=== PATIENT | female | born 1985 | race American Indian/Alaskan Native ===

== ENCOUNTER 2016-11-29 16:36 | Observation (INO) | payer MEDICAID ==
[2016-11-29 16:46] VITALS: BP 100/60; PULSE 96; RESP 17; TEMP 98.4; O2SAT 99
[2016-11-29] MEDS ORDERED: Sodium Chloride 0.9% 1,000 ML IV STA (17:08)
--- NOTE | 2016-11-29 17:21 | ED PDOC ---
HPI: Female Pain Time Seen by Provider: 11/29/16 16:45 Chief Complaint (Nursing): Abdominal Pain Chief Complaint (Provider): Pelvic pain History Per: Patient History/Exam Limitations: no limitations Onset/Duration Of Symptoms: Days (3) Current Symptoms Are (Timing): Still Present Additional Complaint(s): Left lower pelvic pain like cramps. Ongoing for 3 days. Also nonbloody nausea/ vomit. No diarrhea. No vaginal bleeding or dysuria. No chest pain, dyspnea. No back pain. No weakness. Unsure if preg Past Medical History Reviewed: Nursing Documentation, Vital Signs Vital Signs: Last Vital Signs Temp 98.4 F 11/29/16 16:42 Pulse 96 H 11/29/16 16:42 Resp 17 11/29/16 16:42 BP 100/60 11/29/16 16:42 Pulse Ox 99 11/29/16 16:42 - Medical History PMH: Hiatal Hernia - Surgical History Other surgeries: hernia repair - Family History Family History: States: Unknown Family Hx - Living Arrangements Living Arrangements: With Family - Social History Current smoker - smoking cessation education provided: No Alcohol: None Drugs: Denies - Immunization History Hx Tetanus Toxoid Vaccination: No Hx Influenza Vaccination: No Hx Pneumococcal Vaccination: No - Home Medications Home Medications: Ambulatory Orders Medication Instructions Recorded Docusate [Colace] 100 mg PO BID PRN #20 cap 01/16/16 Magnesium Citrate [[facility] [place] 300 ml PO ONCE #1 bottle 01/16/16 Pharmacy Magnesium Citrate] Ciprofloxacin HCl [Cipro] 500 mg PO BID #14 tablet 06/25/16 Metronidazole [Flagyl] 500 mg PO BID #14 tablet 06/25/16 - Allergies Allergies/Adverse Reactions: Allergies Allergy/AdvReac Type Severity Reaction Status Date / Time No Known Allergies Allergy Verified 11/29/16 16:42 Review of Systems ROS Statement: Except As Marked, All Systems Reviewed And Found Negative Gastrointestinal: Positive for: Nausea, Vomiting Genitourinary Female: Positive for: Pelvic Pain Physical Exam - Reviewed Nursing Documentation Reviewed: Yes Vital Signs Reviewed: Yes - Physical Exam Appears: Positive for: Non-toxic, No Acute Distress Head Exam: Positive for: ATRAUMATIC, NORMAL INSPECTION, NORMOCEPHALIC Skin: Positive for: Normal Color, Warm, DRY Eye Exam: Positive for: EOMI, Normal appearance, PERRL ENT: Positive for: Normal ENT Inspection Neck: Positive for: Normal, Painless ROM Cardiovascular/Chest: Positive for: Regular Rate, Rhythm Respiratory: Positive for: CNT, Normal Breath Sounds Gastrointestinal/Abdominal: Positive for: Bowel Sounds, Soft, Tenderness (L lower pelvic mild) Back: Positive for: Normal Inspection. Negative for: L CVA Tenderness, R CVA Tenderness Extremity: Positive for: Normal ROM. Negative for: Tenderness, Pedal Edema Neurologic/Psych: Positive for: Alert, Oriented - Laboratory Results Result Diagrams: 11/29/16 17:15 11/29/16 17:15 Interpretation Of Abn Labs: o pos; elevate bhcg Urine POC: Positive - ECG O2 Sat by Pulse Oximetry: 99 Pulse Ox Interpretation: Normal Medical Decision Making Medical Decision Making: Stable. ED OBSERVATION Discharge: Yes Date of observation admission: 11/29/16 Time of observation admission: 17:21 - Observation admission statement Patient is being placed in observation because:: abd pain - Goals of Observation Goals of observation are:: abd pain - Progress Note Progress Note: 11/29/16 19:34 SLIUP. Pain free. Tolerated po. FU with obgyn. Disposition - Clinical Impression Clinical Impression: , threatened, early - Patient ED Disposition Is Patient to be Admitted: No Counseled Patient/Family Regarding: Studies Performed, Diagnosis, Need For Followup - Disposition Disposition: Routine/Home Disposition Time: 19:00 Condition: STABLE - POA Present On Arrival: None
[2016-11-29 17:50] LABS: BASO % 0.3 % (0.0-2.0); EOS # 0.1 K/uL (0.0-0.7); EOS % 0.9 % (0.0-4.0); HEMOGLOBIN 11.9 g/dL (12.0-16.0); LYMPH # 1.8 K/uL (1.0-4.3); LYMPH % 16.9 % (20.0-40.0); MEAN CELL VOLUME 86.5 fl (81.0-99.0); MEAN CORPUSCULAR HEMOGLOBIN 27.9 pg (27.0-31.0); MEAN CORPUSCULAR HGB CONC 32.3 g/dL (33.0-37.0); MEAN PLATELET VOLUME 7.2 fl (7.2-11.7); MONO # 0.7 K/uL (0.0-0.8); MONO % 6.7 % (0.0-10.0); NEUT # 7.9 K/uL (1.8-7.0); NEUT % 75.2 % (50.0-75.0); RBC 4.24 Mil/uL (3.80-5.20); RED CELL DISTRIBUTION WIDTH 14.1 % (11.5-14.5); WHITE BLOOD COUNT 10.5 K/uL (4.8-10.8)
[2016-11-29 18:01] LABS: ALB/GLOB RATIO 1.5 (1.0-2.1); ALBUMIN 4.3 g/dL (3.5-5.0); ALT/SGPT 27 U/L (9-52); AST/SGOT 21 U/L (14-36); BLOOD UREA NITROGEN 7 mg/dl (7-17); GFR AFRICAN-AMERICAN > 60; GFR NON-AFRICAN AMERICAN > 60
--- NOTE | 2016-11-29 19:57 | US ---
: EXAM: US First Trimester, Transabdominal CLINICAL HISTORY: 31 years old, female; Pain; complicated by abdominal or pelvic pain; Lower; First trimester; Gestational age or lmp: 5.; ; Additional info: Pain of TECHNIQUE: Real-time transabdominal obstetrical ultrasound of the maternal pelvis and a first trimester with image documentation. COMPARISON: There are no prior studies for comparison.Exam Date/Time: 11/29/2016 5:08 PM FINDINGS: Gestation: There is a single living intrauterine gestation. Gestational sac has mean diameter 30.7 mm [place] rump length measures 15.3 mm There is embryonic heart rate of 165 beats per minute. A yolk sac is present, internal diameter measures approximately 3 mm. . Uterus: Uterus measures approximately 9.4 x 5.9 x 7 cm.. Ovaries: Right ovary measures approximately 2.4 x 1.7 x 2.1 cm. Left ovary measures opacity 2.6 x 1.5 x 2.1 cm. There is flow in both ovaries on Doppler imaging. Free fluid: There is no free fluid. IMPRESSION: 8 week 0 day single living intrauterine gestation, estimated date of delivery 07/11/17
== END 2016-11-29 19:35 | disposition home or self-care (01) ==
LOC: H.ER 16:36 → H.EROBSV 17:08
PROVIDERS: ADMIT Emergency Medicine; ATTEND Emergency Medicine
DX: O20.0 Threatened abortion (principal); Z3A.08 8 weeks gestation of pregnancy